=== PATIENT | male | born 1965 | race Caucasian/White ===

== ENCOUNTER → 2016-08-03 | Outpatient (CLI) | payer BC, OTHER ==
[~2016-08-03] MED LIST: ALPR1TAB2 PO; AMLO10TA2 PO; BACL10TA PO; BACL20TA PO; BYSTOLIC10 MG PO; CHOL100013 PO; CYAN3000 SL; GABA-586 PO; HYDR1TAB14 PO; IOHEXOL 180 MG/ML 10 ML VIAL. ONE; LISI1TAB3 PO; MULT1TAB6 PO; TRAM-29 PO; methylPREDNISolone ACETATE 40 MG/ML VIAL. ONE; methylPREDNISolone ACETATE 80 MG/ML VIAL. ONE
--- NOTE | 2016-08-04 09:09 | PAIN ---
DATE OF SERVICE: 08/03/2016 DIAGNOSES: Lumbar radiculopathy with lumbar degenerative disk disease and lumbar spondylosis. HISTORY OF PRESENT ILLNESS: The patient is a 51-year-old male, who returns for followup status post lumbar epidural steroid injection x 1 on 05/06/2016. The patient did very well with this, reports approximately 75% improvement; but over the past 2 to 3 weeks, the pain has increased and is now about 40% improvement. The patient reports still some significant pain across the low back, in bilateral lower extremities right greater than left, some numbness and tingling and weakness as well in the right leg, also increase in migraine headaches with pain in the back. The patient reports it is worse with sitting or lying down. It is 8 on a scale of 10 at its worst, returning to near to baseline levels. The patient reports still pain radiating into the posterior and lateral thigh on the right greater than the left, at the anterior medial thigh as well as the lower leg bilaterally, again worse on the right side. The patient reports no new motor or sensory deficits, no new bowel or bladder incontinence, or other complaints. PHYSICAL EXAMINATION: VITAL SIGNS: The patient's blood pressure is 149/97, pulse 75, respirations 18, temperature 98.0 degrees Fahrenheit. Height is 5 feet 11 inches, weight is 229 pounds. GENERAL: The patient is awake, alert, oriented, appropriate, very pleasant demeanor. HEENT: Shows normocephalic, atraumatic. Extraocular movements are intact and symmetrical. Oral cavity shows mucous membranes moist and pink. Dentition is intact. NECK: Shows anterior throat supple without palpable lymphadenopathy noted. Swallow reflex is symmetrical. CHEST: Shows normal on inspection. Breath sounds are clear to auscultation bilaterally. HEART: Shows S1 and S2 clear. ABDOMEN: Soft, nontender, nondistended. No palpable organomegaly noted. No rebound or guarding demonstrated, and normal on inspection. BACK: Shows spine grossly in midline with some moderate tenderness in the lumbar paraspinous musculature throughout the upper, middle and lower distribution, mostly in the middle; however, without significant radiation, atrophy or hypertrophy. No asymmetry on inspection. No trigger points or radiation of pain. The patient shows good rotational motion both laterally as well as extension and flexion of the lumbar spine without difficulty. No tenderness over the sacrum or sacroiliac regions. EXTREMITIES: Lower extremities showed deep tendon reflexes 2+ in the patellar tendons, 1+ tendo calcaneus tendons are equal. Motor exam is approximately 4 on a scale of 5 with right dorsiflexion and extension, and 5/5 on the left. PLAN: Options were discussed with the patient at this time. The patient's old chart was reviewed. His current medication regimen was updated. Current review of systems was updated today as well. We will plan on a second lumbar epidural steroid injection today with fluoroscopic guidance. Risks were again discussed including, but not limited to, bleeding, infection, possibility of epidural hematoma, subsequent neurologic compromise, dural puncture, headaches, spinal cord and/or nerve damage, side effects of steroid medication, and poor results regarding pain control. The patient understands and wished to proceed. He will return to clinic in approximately 2 weeks for followup. He was counseled on return appointment, activity level, and side effects to be aware of. DIAGNOSES: Lumbar radiculopathy with lumbar degenerative disk disease, lumbar spondylosis. PROCEDURE: Lumbar epidural steroid injection translaminar approach at the L4-5 level using C-arm fluoroscopic guidance. Under sterile prep and drape and using local anesthetic, medication injected was 120 mg Depo-Medrol plus 10 mL of preservative-free normal saline and 2 mL of Isovue contrast. CONDITION AT DISCHARGE: Stable. The patient tolerated the procedure well, had no complications. JOSÉ BO MD DR: BERNADINE/britt JOB#: [id number] / [id number]
== END | disposition home or self-care (01) ==
LOC: PNCL 07:40
PROVIDERS: ATTEND Anesthesiology
DX: M51.16 Intervertebral disc disorders with radiculopathy, lumbar region (principal); M47.896 Other spondylosis, lumbar region
CPT/HCPCS: 62323; J1030; J1040